=== PATIENT | female | born 1990 | race Caucasian/White ===

== ENCOUNTER 2022-08-17 13:08 | Inpatient (IN) | payer SELFPAY ==
--- OUTSIDE RECORDS SUMMARY | 2022-08-17 13:11 | XMS REPORT | Continuity of Care Document ---
:1990 Author Organization [facility] t Address [address] [place] [address] Dr. Sykes [address] [place] [id number] Care Team Providers Name Role Phone Unavailable Unavailable Unavailable Problems This patient has no known problems. Allergies, Adverse Reactions, Alerts This patient has no known allergies or adverse reactions. Medications This patient has no known medications. Procedures This patient has no known procedures. Encounters Start End Encounter Admission Attending Care Care Encounter Source Date/Time Date/Time Type Type Clinicians Facility Department ID 2022-04-21 2022-04-21 Outpatient [facility] SFA [id number] Juan M 15:24:53 15:24:53 [id number] [facility] Results This patient has no known results.
[2022-08-17] MEDS ORDERED: LORazepam 2 MG/ML VIAL ONE (13:45)
[2022-08-17] MEDS ORDERED: NA CHLORIDE 0.9% 1,000 ML ONE ×2 (13:45→16:11)
[2022-08-17 13:53] LABS: Absolute Lymphocytes (CBC) 0.2 K/uL (0.7-4.9); Hematocrit 37.5 % (36.0-45.0); Lymphocytes % 5.6 % (15.3-44.8); MCV 89.4 fL (80-100); MPV 8.2 fL (7.6-11.3); RBC Red Blood Cell Count 4.19 M/uL (3.86-4.86)
--- NOTE | 2022-08-17 13:57 | RAD REPORT ---
EXAM DESCRIPTION: CT - Head Brain Wo Cont - 08/17/2022 1:51 pm CLINICAL HISTORY: DIZZINESS Headache, drowsiness COMPARISON: No comparisons TECHNIQUE: All CT scans are performed using dose optimization technique as appropriate and may inclu de automated exposure control or mA/KV adjustment according to patient size. FINDINGS: No intracranial hemorrhage, hydrocephalus or extra-axial fluid collection.No areas of brai n edema or evidence of midline shift. The paranasal sinuses and mastoids are clear. The calvarium is intact. IMPRESSION: No acute intracranial abnormality.
[2022-08-17 14:03] LABS: Potassium 3.1 mmol/L (3.5-5.1)
[2022-08-17 14:12] LABS: Troponin High Sensitivity 6.5 pg/mL (<58.9)
--- NOTE | 2022-08-17 14:13 | RAD REPORT ---
EXAM DESCRIPTION: RAD - Chest Single View - 08/17/2022 2:05 pm CLINICAL HISTORY: SOB Chest pain. COMPARISON: No comparisons FINDINGS: Portable technique limits examination quality. The lungs are grossly clear. The heart is normal in size. No displaced fractures. IMPRESSION: No acute intrathoracic process suspected.
[2022-08-17 15:03] LABS: Urine Blood Negative (Negative); Urine Glucose Negative (Negative); Urine Protein 1+ (Negative); Urine pH 5.5 (5.0-7.0)
--- NOTE | 2022-08-17 15:18 | RAD REPORT ---
EXAM DESCRIPTION: CT - Chest For Pe Angio - 08/17/2022 3:06 pm CLINICAL HISTORY: Chest pain. SOB COMPARISON: No comparisons TECHNIQUE: CT angiogram of the pulmonary arteries was performed with MIP. All CT scans are performed using dose optimization technique as appropriate and may include automated exposure control or mA/KV adjustment according to patient size. FINDINGS: No evidence of pulmonary thromboembolism. No acute aortic finding demonstrated. The lungs are clear. No significant pericardial or pleural fluid. No concerning bony finding. IMPRESSION: No evidence of pulmonary thromboembolism. No acute lung findings.
--- NOTE | 2022-08-17 15:41 | ER ---
Nurse's Notes [facility] Name: Kim Alvares Age: 32 yrs Sex: Female : 1990 Arrival Date: 08/17/2022 Time: 13:10 Bed 20 Private MD: Diagnosis: Severe sepsis without septic shock;Tachycardia, unspecified;Dizziness;Shortness of breath;Chest pain, unspecified;Myalgia;UTI/ Urinary tract infection, site not specified Presentation: 08/17 13:38 Chief complaint: Patient states: she has been for approx one week with cough and ap3 congestion. patient reports passing out this morning, and since that episode, she has been shaking, feeling sweaty, and has vomited three times. Coronavirus screen: Client presents with at least one sign or symptom that may indicate coronavirus-19. Ebola Screen: No symptoms or risks identified at this time. Initial Sepsis Screen: Does the patient meet any 2 criteria? RR > 20 per min. HR > 90 bpm. Does the patient have a suspected source of infection? No. Patient's initial sepsis screen is negative. Risk Assessment: Do you want to hurt yourself or someone else? Patient reports no desire to harm self or others. Onset of symptoms was August 17, 2022. 13:38 Method Of Arrival: Ambulatory ap3 13:38 Acuity: MICHAEL 3 ap3 Triage Assessment: 13:42 General: Appears distressed, Behavior is anxious, Reports feeling ill for. Pain: ap3 Complains of pain in headache. Neuro: Level of Consciousness is awake, alert, obeys commands, Oriented to person, place, time, situation, Gait is steady, Speech is normal, Reports dizziness, headache a syncopal episode. Cardiovascular: Patient's skin is warm and dry. Respiratory: Airway is patent. GI: Reports nausea, vomiting. Historical: - Allergies: 13:42 No Known Allergies; ap3 - Home Meds: 13:42 None [Active]; ap3 - PMHx: 13:42 None; ap3 - Immunization history:: Client reports having NOT received the Covid vaccine. Flu vaccine is not up to date. - Social history:: Smoking status: Patient reports the use of cigarette tobacco products, smokes one-half pack cigarettes per day, Patient uses alcohol, occasionally. Screenin:43 Abuse screen: Denies threats or abuse. Nutritional screening: No deficits noted. ap3 Tuberculosis screening: No symptoms or risk factors identified. 19:45 [facility] ED Fall Risk Assessment (Adult) History of falling in the last 3 months, aa9 including since admission No falls in past 3 months (0 pts) Confusion or Disorientation No (0 pts) Intoxicated or Sedated No (0 pts) Impaired Gait No (0 pts) Mobility Assist Device Used No (0 pt) Altered Elimination No (0 pt) Score/Fall Risk Level 0 - 2 = Low Risk Oriented to surroundings, Maintained a safe environment. Assessment: 14:30 Reassessment: Patient and/or family updated on plan of care and expected duration. Pain kr3 level reassessed. Patient is alert, oriented x 3, equal unlabored respirations, skin warm/dry/pink. patient still shivering constantly. 15:29 Reassessment: Patient appears in no apparent distress at this time. Patient and/or kr3 family updated on plan of care and expected duration. Pain level reassessed. Patient is alert, oriented x 3, equal unlabored respirations, skin warm/dry/pink. shivering has improved. 16:30 Reassessment: Patient appears in no apparent distress at this time. Patient and/or kr3 family updated on plan of care and expected duration. Pain level reassessed. Patient is alert, oriented x 3, equal unlabored respirations, skin warm/dry/pink. 17:30 Reassessment: Patient appears in no apparent distress at this time. Patient and/or kr3 family updated on plan of care and expected duration. Pain level reassessed. Patient is alert, oriented x 3, equal unlabored respirations, skin warm/dry/pink. 18:16 Reassessment: Patient appears in no apparent distress at this time. Patient and/or kr3 family updated on plan of care and expected duration. Pain level reassessed. Patient is alert, oriented x 3, equal unlabored respirations, skin warm/dry/pink. 19:44 Reassessment: Patient appears in no apparent distress at this time. Patient and/or aa9 family updated on plan of care and expected duration. Pain level reassessed. Patient is alert, oriented x 3, equal unlabored respirations, skin warm/dry/pink. attempted to call report. 20:09 Reassessment: Patient appears in no apparent distress at this time. report provided to aa9 elizabeth walker. Vital Signs: 13:38 BP 97 / 59; Pulse 126; Resp 23; Pulse Ox 100% on R/A; Weight 55.79 kg; Height 5 ft. 6 ap3 in. (167.64 cm); 14:27 BP 97 / 63; Pulse 116; Resp 20; Pulse Ox 98% on R/A; kr3 15:29 BP 99 / 54; Pulse 111; kr3 15:32 Resp 17; Pulse Ox 100% on R/A; kr3 16:11 BP 94 / 61; Pulse 97; Resp 18; Pulse Ox 97% on R/A; kr3 17:15 BP 92 / 63; Pulse 100; Resp 17; Pulse Ox 96% on R/A; kr3 18:17 BP 90 / 61; Pulse 82; Resp 17; Pulse Ox 96% on R/A; kr3 13:38 Body Mass Index 19.85 (55.79 kg, 167.64 cm) ap3 ED Course: 13:10 Patient arrived in ED. as 13:18 Steven Bojorquez DO is Attending Physician. ms3 13:38 Inserted saline lock: 20 gauge in right antecubital area, using aseptic technique. zm Blood collected. 13:39 Marialuisa Barclay, JAZZ is Primary Nurse. kr3 13:42 Triage completed. ap3 13:42 Basic Metabolic Panel Sent. zm 13:42 CBC with Diff Sent. zm 13:42 D-Dimer Sent. zm 13:42 Troponin HS Sent. zm 13:43 Arm band placed on left wrist. ap3 13:43 Patient has correct armband on for positive identification. Bed in low position. Call ap3 light in reach. Side rails up X 1. Adult w/ patient. air sampling and monitoring on. Pulse ox on. NIBP on. Door closed. Noise minimized. 13:53 CT Head Brain wo Cont In Process Unspecified. EDMS 14:06 XRAY Chest (1 view) In Process Unspecified. EDMS 15:08 CT Chest For PE Angio In Process Unspecified. EDMS 15:39 Rajinder Allen DO is Referral Physician. ms3 16:00 Vu Samlls is Hospitalizing Provider. ms3 18:19 No provider procedures requiring assistance completed. kr3 19:45 Patient admitted, IV remains in place. aa9 Administered Medications: 13:46 Drug: Ativan (LORazepam) 0.5 mg Route: IVP; Site: right antecubital; kr3 14:01 Drug: NS 0.9% 1000 ml Route: IV; Rate: 1000 ml; Site: right antecubital; kr3 19:31 Follow up: Response: No adverse reaction; IV Status: Completed infusion; IV Intake: aa9 1000ml 16:45 Drug: Potassium Effervescent Tablet 50 mEq Route: PO; kr3 19:31 Follow up: Response: No adverse reaction aa9 16:50 Drug: Ketorolac 10 mg 10 mg Route: IVP; Site: right antecubital; kr3 16:58 Drug: Rocephin (cefTRIAXone) 1 grams Route: IV; Rate: calculated rate; Site: right kr3 antecubital; 19:31 Follow up: Response: No adverse reaction; IV Status: Completed infusion aa9 16:58 Drug: NS 0.9% 1000 ml Route: IV; Rate: 1000 ml; Site: right antecubital; kr3 19:30 Follow up: Response: No adverse reaction; IV Status: Completed infusion; IV Intake: aa9 1000ml Medication: 19:44 VIS not applicable for this client. aa9 Intake: 19:30 IV: 1000ml; Total: 1000ml. aa9 19:31 IV: 1000ml; Total: 2000ml. aa9 Outcome: 15:40 Discharge ordered by . ms3 16:01 Decision to Hospitalize by Provider. ms3 19:45 Admitted to Med/surg accompanied by tech, via stretcher, room 223, with chart. aa9 19:45 Condition: stable 19:45 Instructed on the need for admit. 20:14 Patient left the ED. aa9 Signatures: Dispatcher [employer] EDAlba Urrutia Amanda, RN RN ap3 Steven Bojorquez, DO ms3 Tori Hassan Aylin, RN RN aa9 Marialuisa Barclay RN RN kr3
--- NOTE | 2022-08-17 15:41 | EDPHYS ---
Physician Documentation [facility] Name: Kim Alvares Age: 32 yrs Sex: Female : 1990 Arrival Date: 08/17/2022 Time: 13:10 Bed 20 Private MD: ED Physician Steven Bojorquez HPI: 08/17 14:19 This 32 yrs old Female presents to ER via Ambulatory with complaints of Passed Out ms3 Prior To Arrival, Vomiting. 14:19 32-year-old female with no past medical history presents for dizziness and seeing white ms3 spots with syncope 1 hour prior to arrival. Patient states she has had dizziness similar to this before. Patient notes her head and right hand are tingling and her whole body hurts. Patient states she has had fever and body aches 1 week ago associated with a stuffy nose. Patient denies alleviating or inciting factors. Patient states she is having whole body pain at this time. Historical: - Allergies: 13:42 No Known Allergies; ap3 - Home Meds: 13:42 None [Active]; ap3 - PMHx: 13:42 None; ap3 - Immunization history:: Client reports having NOT received the Covid vaccine. Flu vaccine is not up to date. - Social history:: Smoking status: Patient reports the use of cigarette tobacco products, smokes one-half pack cigarettes per day, Patient uses alcohol, occasionally. ROS: 14:19 Constitutional: Negative for fever, and chills. Neck: Negative for injury, pain, and ms3 swelling, Cardiovascular: Negative for chest pain, and palpitations. 14:19 Constitutional: Positive for body aches. 14:19 Respiratory: Positive for shortness of breath. 14:19 Psych: Positive for anxiety. 14:19 All other systems are negative. Exam: 14:19 Abdomen/GI: Inspection: abdomen appears normal, Bowel sounds: normal, Palpation: ms3 abdomen is soft and non-tender. 14:19 Constitutional: This is a well developed, well nourished patient who is awake, alert, and in no acute distress. Head/Face: Normocephalic, atraumatic. Neck: Trachea midline, no cervical lymphadenopathy. Supple, full range of motion without nuchal rigidity, or vertebral point tenderness. No Meningismus. Chest/axilla: Normal chest wall appearance and motion. Nontender with no deformity. 14:19 Cardiovascular: Rate: tachycardic, Rhythm: regular, Pulses: no pulse deficits are appreciated, Heart sounds: normal, Edema: is not appreciated. 14:19 ECG was reviewed by the Attending Physician. Vital Signs: 13:38 BP 97 / 59; Pulse 126; Resp 23; Pulse Ox 100% on R/A; Weight 55.79 kg; Height 5 ft. 6 ap3 in. (167.64 cm); 14:27 BP 97 / 63; Pulse 116; Resp 20; Pulse Ox 98% on R/A; kr3 15:29 BP 99 / 54; Pulse 111; kr3 15:32 Resp 17; Pulse Ox 100% on R/A; kr3 16:11 BP 94 / 61; Pulse 97; Resp 18; Pulse Ox 97% on R/A; kr3 17:15 BP 92 / 63; Pulse 100; Resp 17; Pulse Ox 96% on R/A; kr3 18:17 BP 90 / 61; Pulse 82; Resp 17; Pulse Ox 96% on R/A; kr3 13:38 Body Mass Index 19.85 (55.79 kg, 167.64 cm) ap3 MDM: 13:26 Patient medically screened. ms3 15:50 Differential Diagnosis: PE vs PNA vs Arrhythmia vs Anxiety. Data reviewed: vital signs, ms3 nurses notes, lab test result(s), radiologic studies, CT scan, plain films. Consideration of Admission/Observation Escalation of care including admission/observation considered. 16:02 ED course: Patient meets severe sepsis criteria at this time. Source: UTI. SIRS: HR ms3 >90, WBC <4k. End organ dysfunction BP 86/54. LA and blood cultures ordered. Rocephin ordered. . 16:03 Management of patient was discussed with the following: Hospitalist: Dr Smalls and ms3 JIMMY Aviles. I considered the following discharge prescriptions or medication management in the emergency department Medications were administered in the Emergency Department. See MAR. Independent interpretation of the following test(s) in the Emergency Department EKG: See my EKG interpretation above X-Ray: My interpretation is CXR image negative. Counseling: I had a detailed discussion with the patient and/or guardian regarding: the historical points, exam findings, and any diagnostic results supporting the discharge/admit diagnosis, lab results, radiology results, the need for further work-up and treatment in the hospital. ED course: Patient with 1 episode of hypotension. Urine is positive for nitrite. Case discussed with Stefan and he accepts patient on behalf of Dr. Smalls. Discussed plan for admission with patient and she understands and agrees with plan. 08/17 13:27 Order name: Basic Metabolic Panel; Complete Time: 14:15 ms3 08/17 13:27 Order name: CBC with Diff; Complete Time: 15:58 ms3 08/17 13:27 Order name: D-Dimer; Complete Time: 14:15 ms3 08/17 13:27 Order name: Troponin HS; Complete Time: 14:15 ms3 08/17 15:02 Order name: Urine --Ancillary (enter results) bd 08/17 15:03 Order name: Urine Dipstick-Ancillary; Complete Time: 15:38 EDMS 08/17 15:47 Order name: CBC Smear Scan; Complete Time: 15:58 EDMS 08/17 15:56 Order name: Blood Culture Adult (2) ms3 08/17 15:56 Order name: Lactate w/ 2H reflex if indic. ms3 08/17 15:56 Order name: Protime (+inr) ms3 08/17 15:56 Order name: Ptt, Activated ms3 08/17 15:57 Order name: COVID-19/FLU A+B/RSV ms3 08/17 17:16 Order name: Glucose, Ancillary Testing EDMS 08/17 18:04 Order name: Lipid Profile EDMS 08/17 13:27 Order name: XRAY Chest (1 view); Complete Time: 14:15 ms3 08/17 13:34 Order name: CT Head Brain wo Cont; Complete Time: 14:15 ms3 08/17 14:16 Order name: CT Chest For PE Angio; Complete Time: 15:38 ms3 08/17 16:49 Order name: Echo with Doppler EDMS 08/17 16:49 Order name: ERT ORTHOSTATIC V/S EDMS 08/17 16:49 Order name: ERT ORTHOSTATIC V/S EDMS 08/17 16:49 Order name: ERT ORTHOSTATIC V/S EDMS 08/17 16:49 Order name: ERT ORTHOSTATIC V/S EDMS 08/17 18:19 Order name: Phosphorus EDMS 08/17 18:19 Order name: T4 Free EDMS 08/17 18:19 Order name: Magnesium EDMS 08/17 18:19 Order name: Thyroid Stimulating Hormone EDMS 08/17 18:34 Order name: Hemoglobin A1c EDMS 08/17 13:27 Order name: EKG; Complete Time: 13:27 ms3 08/17 13:27 Order name: Cardiac monitoring; Complete Time: 13:42 ms3 08/17 13:27 Order name: EKG - Nurse/Tech; Complete Time: 13:42 ms3 08/17 13:27 Order name: IV Saline Lock; Complete Time: 13:42 ms3 08/17 13:27 Order name: Labs collected and sent; Complete Time: 13:42 ms3 08/17 13:27 Order name: O2 Per Protocol; Complete Time: 13:42 ms3 08/17 13:27 Order name: O2 Sat Monitoring; Complete Time: 13:42 ms3 08/17 13:45 Order name: Urine Test (obtain specimen); Complete Time: 15:17 ap3 08/17 13:45 Order name: Urine Dipstick-Ancillary (obtain specimen); Complete Time: 15:17 ap3 08/17 15:46 Order name: Misc. Order: Ambulate Patient; Complete Time: 19:31 ms3 08/17 15:56 Order name: Accucheck; Complete Time: 17:05 ms3 08/17 15:56 Order name: IV Saline Lock - Large Bore; Complete Time: 16:03 ms3 08/17 15:56 Order name: Vital Signs; Complete Time: 16:10 ms3 08/17 16:49 Order name: Clear Liquid EDMS EC:19 Rate is 110 beats/min. Rhythm is regular. QRS [place] is Normal. VT interval is normal. ms3 QRS interval is normal. Clinical impression: Sinus tachycardia. Interpreted by me. Reviewed by me. Administered Medications: 13:46 Drug: Ativan (LORazepam) 0.5 mg Route: IVP; Site: right antecubital; kr3 14:01 Drug: NS 0.9% 1000 ml Route: IV; Rate: 1000 ml; Site: right antecubital; kr3 19:31 Follow up: Response: No adverse reaction; IV Status: Completed infusion; IV Intake: aa9 1000ml 16:45 Drug: Potassium Effervescent Tablet 50 mEq Route: PO; kr3 19:31 Follow up: Response: No adverse reaction aa9 16:50 Drug: Ketorolac 10 mg 10 mg Route: IVP; Site: right antecubital; kr3 16:58 Drug: Rocephin (cefTRIAXone) 1 grams Route: IV; Rate: calculated rate; Site: right kr3 antecubital; 19:31 Follow up: Response: No adverse reaction; IV Status: Completed infusion aa9 16:58 Drug: NS 0.9% 1000 ml Route: IV; Rate: 1000 ml; Site: right antecubital; kr3 19:30 Follow up: Response: No adverse reaction; IV Status: Completed infusion; IV Intake: aa9 1000ml Disposition Summary: 08/17/22 16:01 Hospitalization Ordered Hospitalization Status: Inpatient Admission ms3 Provider: Vu Smalls ms3 Location: Telemetry/[facility]Sur (Inpatient)(08/17/22 16:01) ms3 Condition: Stable(08/17/22 16:01) ms3 Problem: new ms3 Symptoms: are unchanged ms3 Bed/Room Type: Standard ms3 Room Assignment: 223(08/17/22 18:01) Diagnosis - Severe sepsis without septic shock ms3 - Tachycardia, unspecified(08/17/22 16:01) ms3 - Dizziness ms3 - Shortness of breath(08/17/22 16:01) ms3 - Chest pain, unspecified ms3 - Myalgia ms3 - UTI/ Urinary tract infection, site not specified(08/17/22 16:01) ms3 Forms: - Medication Reconciliation Form ms3 - SBAR form ms3 Critical care time excluding procedures: 16:03 Critical care time: Bedside Care: 35 minutes, Consultation: 5 minutes, Family ms3 Intervention: 5 minutes. Total time: 45 minutes Signatures: Dispatcher [employer] Francisca Montesinos RN RN dw Prokisch, Amanda RN RN [email or web address] Steven Bojorquez DO DO ms3 Marialuisa Barclay RN RN [email or web address] Irena De La Fuente RN aa9 Corrections: (The following items were deleted from the chart) 15:59 15:40 Home ms3 ms3 15:59 15:40 Stable ms3 ms3 15:59 15:40 Syncope ms3 ms3 15:59 15:40 Dizziness ms3 ms3 15: 15:40 Tachycardia, unspecified ms3 ms3 15:59 15:40 Shortness of breath ms3 ms3 15:59 15:47 UTI/ Urinary tract infection, site not specified ms3 ms3 18:01 16:01 ms3 dw
[2022-08-17 15:46] LABS: Platelet Estimate ADEQ; White Blood Cell Scan OK (OK)
[2022-08-17 15:47] LABS: Blood Morphology Comment NOT SEEN (NOT SEEN)
[2022-08-17] MEDS ORDERED: KETOROLAC 30 MG/ML INJ ONE (16:11)
[2022-08-17] MEDS ORDERED: POTASSIUM 25 MEQ EFFERV TAB ONE (16:11)
[2022-08-17] MEDS ORDERED: CEFTRIAXONE 1000 MG/VIAL ONE (16:11)
[2022-08-17] MEDS ORDERED: SODIUM CHLORIDE 0.9% 10ML INJ IV PRN (16:48)
--- NOTE | 2022-08-17 16:54 | P.HP ---
Certification for Inpatient Patient admitted to: Inpatient With expected LOS: >2 Midnights Patient will require the following post-hospital care: None Practitioner: I am a practitioner with admitting privileges, knowledge of patient current condition, hospital course, and medical plan of care. Services: Services provided to patient in accordance with Admission requirements found in Title 42 Section 412.3 of the Code of Federal Regulations Patient History Date of Service: 08/17/22 Reason for admission: Syncope History of Present Illness: Patient is a 32-year-old female with a past medical history significant for nicotine dependence who presents with complaint of syncope onset today. Patient reported that she has been having flulike symptoms--sore throat, runny nose, fever and headache for the past 1 week. Patient also reported chest pain onset 3 days ago located in the substernal chest area. Patient rated pain as 8/10 in severity and described pain as stabbing in quality. Patient reported that she experienced episode of nausea and vomiting today. Patient later started experiencing dizziness and eventually passed out. Patient denies hitting her head. Patient reported associated signs and symptoms of poor appetite, diaphoresis, malaise and generalized body pains. Patient denies any other signs and symptoms. Symptoms are aggravated or relieved by nothing. Patient decided to present to the hospital with due to worsening symptoms. Home medications list reviewed: No - Past Medical/Surgical History Diabetic: No -: Nicotine dependence Past Surgical History: Reviewed- Non-Contributory - Family History Family History: Reviewed- Non-Contributory - Social History Smoking Status: Current every day smoker Counseled patient to stop smoking for: less than 10 minutes Smoking therapy provided: Yes Patient receptive to therapy: Yes Alcohol use: Yes CD- Drugs: No Caffeine use: Yes Place of Residence: Home Review of Systems General: Fever, Sweats, Malaise, Other (Poor appetite, generalized body pains) Eyes: Unremarkable ENT: Throat Pain, Other (Rhinorrhea) Respiratory: Unremarkable Cardiovascular: Chest Pain Gastrointestinal: Nausea, Vomiting Genitourinary: Unremarkable Musculoskeletal: Other (Generalized body pains) Integumentary: Unremarkable Neurological: Weakness, Other (Headache, dizziness, syncope) Lymphatics: Unremarkable Physical Examination - Physical Exam General: Alert, In no apparent distress, Oriented x3, Cooperative HEENT: Atraumatic, PERRLA, Mucous membr. moist/pink, EOMI, Sclerae nonicteric Neck: Supple, 2+ carotid pulse no bruit, No LAD, Without JVD or thyroid abnormality Respiratory: Clear to auscultation bilaterally, Normal air movement Cardiovascular: No edema, Regular rate/rhythm, Normal S1 S2 Capillary refill: <2 Seconds Gastrointestinal: Normal bowel sounds, Non-distended, No tenderness Musculoskeletal: No clubbing, No swelling, No tenderness Integumentary: No rashes, No significant lesion, No tenderness/swelling Neurological: Normal gait, Normal speech, Normal strength at 5/5 x4 extr, Normal tone, Normal affect Lymphatics: No axilla or inguinal lymphadenopathy - Studies Laboratory Data (last 24 hrs) 08/17/22 13:38: WBC 3.50 L, Hgb 13.0, Hct 37.5, Plt Count 286 08/17/22 13:38: Sodium 136, Potassium 3.1 L, BUN 10, Creatinine 1.19 H, Glucose 127 H Assessment and Plan - Plan --Syncope. Likely secondary to hypotension. Echocardiogram pending to assess LV\valvular function and wall motion. Carotid Doppler to assess for any carotid artery stenosis. We will get orthostatic vital signs. Continue IV hydration. Fall precautions. --Sepsis POA. Patient given IV bolus hydration in the ER. Continue antibiotics and IV hydration. --COVID-19 infection. Patient's O2 sat within normal limits on room air. No intrathoracic abnormality noted on imaging. Continue airborne and contact precautions. --Nausea and vomiting. Antiemetics on board. Continue IV hydration. --Nicotine dependence. Patient counseled on tobacco cessation. Patient refuses nicotine patch. --Chest pain. To rule out ACS. Will trend serial troponins-negative so far. Cardiology consulted. Echocardiogram pending. Telemetry to monitor for any significant arrhythmia. --Headache. Tylenol as needed. --Elevated D-dimer. Likely secondary to COVID-19 infection. CTA PE protocol negative for PE. Continue supportive care. --UTI POA. Continue antibiotics. Urine cultures pending. --DVT prophylaxis with Lovenox subQ. Discharge Plan: Home Plan to discharge in: Greater than 2 days - Advance Directives Does patient have a Living Will: No Does patient have a Durable POA for Healthcare: No - Code Status/Comfort Care Code Status Assessed: Yes Physician Review: Patient Assessed, Agree with Above Assessment and Plan Critical Care: No
[2022-08-17 17:11] LABS: Protime INR 1.09
[2022-08-17 17:41] LABS: SARS-COV-2 RT PCR POSITIVE (NEGATIVE)
[2022-08-17 18:17] LABS: Magnesium 1.4 mg/dL (1.6-2.4); Thyroid Stimulating Hormone 0.566 uIU/mL (0.358-3.740)
[2022-08-17 18:18] LABS: Phosphorus 0.8 mg/dL (2.5-4.9)
[2022-08-17] MEDS ORDERED: MAGNESIUM SULFATE 1 gm IVPB 1 GM/100 ML BAG IV ONE (19:27)
[2022-08-17] MEDS ORDERED: POTASSIUM PHOS 10 MM in NA CHLORIDE 0.9% 250 ML IV ONE (19:28)
[2022-08-17] MEDS: ASPIRIN 81 MG CHEWABLE TABLET PO SCH (20:49)
[2022-08-17] MEDS: ENOXAPARIN 40 MG/0.4 ML SQ SCH (20:50)
[2022-08-17] MEDS: PANTOPRAZOLE 40 MG INJ IVP SCH (20:50)
[2022-08-17] MEDS: NA CHLORIDE 0.9% 1,000 ML IV SCH (20:50)
[2022-08-17] MEDS ORDERED: POTASSIUM PHOS IN 0.9 % NACL 15 MMOL/250 ML BAG IV ONE ×2 (21:38→22:29)
[2022-08-17] MEDS: NICOTINE 21 MG/PAT TD SCH (22:36)
[2022-08-18 02:11] LABS: Absolute Lymphocytes (CBC) 0.7 K/uL (0.7-4.9); Hematocrit 34.3 % (36.0-45.0); Lymphocytes % 7.9 % (15.3-44.8); MCV 90.5 fL (80-100); MPV 8.9 fL (7.6-11.3); RBC Red Blood Cell Count 3.79 M/uL (3.86-4.86)
[2022-08-18 02:22] LABS: Magnesium 2.2 mg/dL (1.6-2.4); Potassium 4.4 mmol/L (3.5-5.1)
[2022-08-18] MEDS: ONDANSETRON 4 MG/2 ML VIAL IV PRN ×2 (02:46→22:25)
[2022-08-18] MEDS: ACETAMINOPHEN 325 MG TABLET PO PRN ×3 (02:52→22:25)
[2022-08-18] MEDS: TRAMADOL HCL 50 MG TAB PO PRN ×2 (02:52→20:15)
--- NOTE | 2022-08-18 07:56 | EKG ---
Test Date: 2022-08-17 Test Time: 13:33:02 Juvenile Corrections Officer: ALP MEASUREMENT RESULTS: Intervals: Rate: 114 ID: [id number] QRSD: 80 QT: 330 QTc: 454 [place]: P: 7 ID: [id number] QRS: 83 T: 73 INTERPRETIVE STATEMENTS: Sinus tachycardia RSR' or QR pattern in V1 suggests right ventricular conduction delay Nonspecific ST and T wave abnormality Abnormal ECG No previous ECG available for comparison Electronically Signed On 08-18-22 07:54:27 FARMWORKER [employer]IN by Sukhdev Casanova
[2022-08-18] MEDS ORDERED: INFLUENZA VACCINE (for 6+ mo) 0.5 ML DOSE IMVAC ONE (08:00)
--- NOTE | 2022-08-18 08:18 | RAD REPORT ---
EXAM DESCRIPTION: - CP - 08/18/2022 1:03 am CLINICAL HISTORY: Syncope COMPARISON: No comparisons TECHNIQUE: Real-time sonographic grayscale, color duplex, and spectral wave Doppler evaluation of [facility] carotid systems was performed. FINDINGS: Normal high resistance waveforms are noted in both external carotid arteries. The common c arotid arteries and internal carotid arteries show normal low resistance waveforms. No significant plaque formation is seen. Peak systolic velocity less than 125 cm/ sec bilaterally. IC A/CCA peak systolic ratios less than 2.0 bilaterally. Antegrade flow seen in both vertebral arteries. IMPRESSION: No significant atherosclerotic changes noted. No evidence of a hemodynamically significant stenosis.
[2022-08-18] MEDS: CEFTRIAXONE 1,000 MG in NA CHLORIDE 0.9% 50 ML IVPB SCH (09:50)
[2022-08-18] MEDS: PANTOPRAZOLE 40 MG INJ IVP SCH (09:51)
[2022-08-18] MEDS: ASPIRIN 81 MG CHEWABLE TABLET PO SCH (09:51)
[2022-08-18] MEDS: NICOTINE 21 MG/PAT TD SCH (09:51)
[2022-08-18] MEDS: ENOXAPARIN 40 MG/0.4 ML SQ SCH (09:52)
--- NOTE | 2022-08-18 12:11 | P.PN ---
Subjective Date of Service: 08/18/22 Chief Complaint: Syncope Patient had fever last night. Blood pressure has been borderline low. She denies any other complaints and wishes to go home. 2/4 blood culture bottles growing gram-negative rods. Physical Examination - Vital Signs Temperature: 98.3 F Blood Pressure: 95/55 Pulse: 84 Respirations: 18 Pulse Ox (%): 99 - Studies Laboratory Data (last 24 hrs) 08/17/22 16:30: PT 12.0, INR 1.09, APTT 27.2 08/17/22 13:38: WBC 3.50 L, Hgb 13.0, Hct 37.5, Plt Count 286 08/17/22 13:38: Sodium 136, Potassium 3.1 L, BUN 10, Creatinine 1.19 H, Glucose 127 H Assessment And Plan - Current Problems (Diagnosis) (1) Gram negative sepsis Current Visit: Yes Status: Acute (2) Syncope Current Visit: Yes Status: Acute (3) COVID-19 virus infection Current Visit: Yes Status: Acute - Plan Physical Exam General: Alert, In no apparent distress, Oriented x3. Neck: Supple, no elevated JVD. Respiratory: Clear to auscultation bilaterally, Normal air movement Cardiovascular: No edema, Regular rate/rhythm, Normal S1 S2 Capillary refill: <2 Seconds Gastrointestinal: Normal bowel sounds, Non-distended, No tenderness Musculoskeletal: No clubbing, No swelling, No tenderness Integumentary: No rashes, No significant lesion, No tenderness/swelling Neurological: Normal gait, Normal speech, Normal strength at 5/5 x4 extr, Normal tone, Normal affect Plan: Continue IV Rocephin. Follow blood cultures. Urine culture not done. Obtain urine culture. Supportive measures with IV hydration, antipyretics. Diet as tolerated. Syncope likely secondary to orthostasis. Echocardiogram done and the result is pending. Hypomagnesemia and hypophosphatemia corrected. No COVID-pneumonia.
[2022-08-18] MEDS: NA CHLORIDE 0.9% 1,000 ML IV SCH ×2 (15:41→22:25)
[2022-08-19] MEDS: ACETAMINOPHEN 325 MG TABLET PO PRN ×3 (04:54→20:35)
[2022-08-19] MEDS: TRAMADOL HCL 50 MG TAB PO PRN ×2 (04:54→16:47)
--- NOTE | 2022-08-19 06:28 | ECHO ---
HEIGHT: 5 ft 6 in WEIGHT: 122 lb 15.934 oz DATE OF STUDY: 08/18/[address]: Krish Jacobo 2-DIMENSIONAL: YES M.MODE: YES DOPPLER: YES COLOR FLOW: YES TDS: PORTABLE: YES DEFINITY: BUBBLE STUDY: DIAGNOSIS: CHEST PAIN CARDIAC HISTORY: CATHERIZATION: SURGERY: PROSTHETIC VALVE: PACEMAKER: MEASUREMENTS (cm) DIASTOLIC (NORMALS) SYSTOLIC (NORMALS) IVSd 0.8 (0.6-1.2) LA Diam 2.3 (1.9-4.0) LVEF 55% LVIDd 4.5 (3.5-5.7) LVIDs 3.2 (2.0-3.5) %FS 28% LVPWd 0.8 (0.6-1.2) Ao Diam 2.7 (2.0-3.7) 2 DIMENSIONAL ASSESSMENT: RIGHT ATRIUM: NORMAL LEFT ATRIUM: NORMAL RIGHT VENTRICLE: NORMAL LEFT VENTRICLE: NORMAL TRICUSPID VALVE: MILD TRICUSPID REGURGITATION MITRAL VALVE: NORMAL PULMONIC VALVE: MILD PULMONIC INSUFFICIENCY AORTIC VALVE: NORMAL PERICARDIAL EFFUSION: NONE AORTIC ROOT: NORMAL LEFT VENTRICULAR WALL MOTION: NORMAL DOPPLER/COLOR FLOW: SEE BELOW COMMENTS: 1. NORMAL LEFT VENTRICULAR EJECTION FRACTION 55-60% 2. MILD TRICUSPID REGURGITATION, PULMONIC INSUFFICIENCY 3. NORMAL DIASTOLIC FUNCTION 4. DILATED INFERIOR VENA CAVA TECHNOLOGIST: MATILDA HINDS
[2022-08-19] MEDS: ASPIRIN 81 MG CHEWABLE TABLET PO SCH (09:24)
[2022-08-19] MEDS: CEFTRIAXONE 1,000 MG in NA CHLORIDE 0.9% 50 ML IVPB SCH (09:24)
[2022-08-19] MEDS: PANTOPRAZOLE 40 MG INJ IVP SCH (09:25)
[2022-08-19] MEDS: NICOTINE 21 MG/PAT TD SCH (09:25)
[2022-08-19] MEDS: ENOXAPARIN 40 MG/0.4 ML SQ SCH (09:25)
[2022-08-19] MEDS: NA CHLORIDE 0.9% 1,000 ML IV SCH ×2 (09:27→20:25)
--- NOTE | 2022-08-19 13:14 | CON ---
History Of Present Illness: This is a 32-year-old female I was consulted for bacteremia. Patient melara s significant history of tobacco dependence, coming in with fevers and flu-like symptoms with runny n ose and headaches of 1 week. Patient also complains of chest discomfort, worsening with the cough. Patient denies any other problems like nausea, vomiting, abdominal pain, back pain. Complains of aristides e leg discomfort. Past Medical History: None. Social History: Tobacco positive. Alcohol negative. Family History: Noncontributory. Medications: Rocephin. See MAR for other medications. Allergies: NO KNOWN DRUG ALLERGIES. Review of Systems: A 10-point review was performed. Physical Examination: General: This is a 32-year-old female, lying in bed, not in any acute cardiopulmonary distress. Vital Signs: Temperature 97, pulse 69, respirations 16, blood pressure 98/60. HEENT: Unremarkable. Neck: Supple. Lungs: Clear to auscultation. Heart: S1, S2. Regular. Abdomen: Soft. Bowel sounds present. Extremity: No edema. Laboratory Data: Shows WBC 8.3, hemoglobin 11.7, platelets are 226; leukopenia 3.5 has resolved to n ormal. BUN 9, creatinine 0.7. Urine nitrites are positive. COVID test is positive. CT chest done shows no evidence of thromboembolism. Micro data showing gram-negative katie in blood cultures. Assessment And Plan: Gram-negative katie bacteremia, COVID infection, currently being treated with Dayo ephin in a 32-year-old female with the longstanding history of tobacco use. Leukopenia has improved, most likely secondary to viral syndrome. Continue current treatment total of 10 days. We will foll ow patient as needed. Thank you, Dr. Smalls, for consult. NF/MODL Voice ID: [id number] Report ID: [id number]
--- NOTE | 2022-08-19 13:53 | P.PN ---
Subjective Date of Service: 08/19/22 Chief Complaint: Syncope Patient has no new complaint. She had fever yesterday. Physical Examination - Vital Signs Temperature: 97.0 F Blood Pressure: 95/64 Pulse: 69 Respirations: 16 Pulse Ox (%): 100 Assessment And Plan - Current Problems (Diagnosis) (1) Gram negative sepsis Current Visit: Yes Status: Acute (2) Syncope Current Visit: Yes Status: Acute (3) COVID-19 virus infection Current Visit: Yes Status: Acute - Plan Physical Exam General: Alert, NAD Respiratory: Clear to auscultation bilaterally, Normal air movement Cardiovascular: No edema, Regular rate/rhythm, Normal S1 S2 Gastrointestinal: Normal bowel sounds, Non-distended, No tenderness Musculoskeletal: No clubbing, No swelling, No tenderness Integumentary: No rashes, No significant lesion, No tenderness/swelling Neurological: No focal motor deficit. Plan: Continue IV Rocephin. Blood culture organism identification and antibiotic sensitivity are pending. Supportive measures with IV hydration, antipyretics. Diet as tolerated. Syncope likely secondary to orthostasis. Echocardiogram shows normal EF and unremarkable. Infectious disease input appreciated. Dr. Rodriguez recommends outpatient oral antibiotics pending organism ID and sensitivity No COVID-pneumonia.
[2022-08-19] MEDS: ONDANSETRON 4 MG/2 ML VIAL IV PRN (16:02)
[2022-08-19 16:03] LABS: Specific Gravity 1.008 (1.005-1.030); Urine Bilirubin NEGATIVE (Negative); Urine Blood Negative (Negative); Urine Clarity Clear (Clear); Urine Color Yellow (Yellow); Urine Glucose NEGATIVE (Negative); Urine Protein NEGATIVE (Negative); Urine Urobilinogen 2+ (Normal)
[2022-08-19 16:25] VITALS: BMI 19.7
[2022-08-19] MEDS ORDERED: MORPHINE 2 MG/ML SYR IV PRN (18:09)
[2022-08-20] MEDS: TRAMADOL HCL 50 MG TAB PO PRN (06:09)
[2022-08-20] MEDS: NA CHLORIDE 0.9% 1,000 ML IV SCH ×2 (09:15→23:38)
[2022-08-20] MEDS: NICOTINE 21 MG/PAT TD SCH (09:16)
[2022-08-20] MEDS: ASPIRIN 81 MG CHEWABLE TABLET PO SCH (09:16)
[2022-08-20] MEDS: PANTOPRAZOLE 40 MG INJ IVP SCH (09:16)
[2022-08-20] MEDS: ENOXAPARIN 40 MG/0.4 ML SQ SCH (09:16)
[2022-08-20] MEDS: CEFTRIAXONE 1,000 MG in NA CHLORIDE 0.9% 50 ML IVPB SCH (09:17)
[2022-08-20] MEDS: ACETAMINOPHEN 325 MG TABLET PO PRN (13:38)
--- NOTE | 2022-08-20 14:24 | P.PN ---
Subjective Date of Service: 08/20/22 Chief Complaint: Syncope Patient states she feels much better She is complaining of headache. 36 hours of no fever. She is tolerating clear liquid diet. Physical Examination - Vital Signs Temperature: 98.3 F Blood Pressure: 104/72 Pulse: 78 Respirations: 16 Pulse Ox (%): 99 Assessment And Plan - Current Problems (Diagnosis) (1) Gram negative sepsis Current Visit: Yes Status: Acute (2) Syncope Current Visit: Yes Status: Acute (3) COVID-19 virus infection Current Visit: Yes Status: Acute - Plan Physical Exam General: Alert, NAD Respiratory: Clear to auscultation bilaterally, Normal air movement Cardiovascular: No edema, Regular rate/rhythm, Normal S1 S2 Gastrointestinal: Normal bowel sounds, Non-distended, No tenderness Musculoskeletal: No clubbing, No swelling, No tenderness Integumentary: No rashes, No significant lesion, No tenderness/swelling Neurological: No focal motor deficit. Plan: Continue IV Rocephin. Blood culture organism identification and antibiotic sensitivity still pending. Supportive measures with IV hydration, antipyretics. Advance diet as tolerated. Syncope likely secondary to orthostasis. Blood pressure readings improved today. Echocardiogram shows normal EF and unremarkable. Infectious disease input appreciated. Dr. Rodriguez recommends outpatient oral antibiotics pending organism ID and sensitivity No COVID-pneumonia.
[2022-08-21] MEDS: NA CHLORIDE 0.9% 1,000 ML IV SCH (01:00)
[2022-08-21 03:45] LABS: Absolute Lymphocytes (CBC) 1.6 K/uL (0.7-4.9); Hematocrit 31.1 % (36.0-45.0); Lymphocytes % 29.4 % (15.3-44.8); MCV 89.2 fL (80-100); RBC Red Blood Cell Count 3.49 M/uL (3.86-4.86)
[2022-08-21 03:52] LABS: Potassium 3.7 mmol/L (3.5-5.1)
[2022-08-21 04:09] VITALS: O2SAT 97
[2022-08-21] MEDS: PANTOPRAZOLE 40 MG INJ IVP SCH (08:26)
[2022-08-21] MEDS: ENOXAPARIN 40 MG/0.4 ML SQ SCH (08:26)
[2022-08-21] MEDS: NICOTINE 21 MG/PAT TD SCH (08:27)
[2022-08-21] MEDS: ASPIRIN 81 MG CHEWABLE TABLET PO SCH (08:32)
--- NOTE | 2022-08-21 08:39 | P.DS ---
Admission Date: 08/17/22 Discharge Date: 08/21/22 Disposition: ROUTINE DISCHARGE Discharge Condition: FAIR Reason for Admission: Syncope - Problems (1) Gram negative sepsis Status: Acute (2) Syncope Status: Acute (3) COVID-19 virus infection Status: Acute Brief History of Present Illness: Patient is a 32-year-old female with a past medical history significant for nicotine dependence who presented with complaint of syncope. Patient reported that she has been having flulike symptoms-sore throat, runny nose, fever and headache for 1 week. Patient also reported chest pain onset 3 days ago located in the substernal chest area. Patient rated pain as 8/10 in severity and described pain as stabbing in quality. Patient reported that she experienced episode of nausea and vomiting. Patient later started experiencing dizziness and eventually passed out. She denies hitting her head. She also reported poor appetite, diaphoresis, malaise and generalized body pains. She tested positive for COVID-19. UA suggested the presence of UTI. Patient was admitted for further management. Hospital Course: Patient admitted to the medical floor and started on IV hydration for borderline low blood pressure. Her blood culture grew E. coli. Patient was treated with IV Rocephin and received 4 days of treatment. Patient's symptoms resolved. Her blood pressure improved. She was seen and evaluated by infectious disease who recommended further outpatient treatment with oral antibiotics. E. coli is sensitive to fluoroquinolones. Patient is discharged with oral ciprofloxacin to complete 2 weeks of treatment for E. coli bacteremia. Vital Signs/Physical Exam: Temp Pulse Resp BP Pulse Ox 97.5 F 66 17 103/54 L 97 08/21/22 04:00 08/21/22 04:00 08/21/22 04:00 08/21/22 04:00 08/21/22 04:00 General: Alert, In no apparent distress, Oriented x3 HEENT: Mucous membr. moist/pink Neck: JVD not distended Respiratory: Clear to auscultation bilaterally, Normal air movement Cardiovascular: No edema, Regular rate/rhythm, Normal S1 S2 Capillary refill: >2 Seconds Gastrointestinal: Soft and benign, Non-distended Musculoskeletal: No swelling Integumentary: No rashes, No cyanosis Neurological: Normal speech, Normal strength at 5/5 x4 extr Laboratory Data at Discharge: WBC 5.30 K/uL (4.3-10.9) 02/12/23 02:57 Hgb 10.8 g/dL (12.0-15.0) L 08/21/22 02:57 Hct 31.1 % (36.0-45.0) L 08/21/22 02:57 Plt Count 311 K/uL (152-406) 08/21/22 02:57 PT 12.0 SECONDS (9.5-12.5) 08/17/22 16:30 INR 1.09 08/17/22 16:30 APTT 27.2 SECONDS (24.3-36.9) 08/17/22 16:30 Sodium 137 mmol/L (136-145) 08/21/22 02:57 Potassium 3.7 mmol/L (3.5-5.1) 08/21/22 02:57 BUN 4 mg/dL (7-18) L 08/21/22 02:57 Creatinine 0.55 mg/dL (0.55-1.02) 08/21/22 02:57 Glucose 102 mg/dL (74-106) 08/21/22 02:57 Phosphorus 3.0 mg/dL (2.5-4.9) 08/18/22 01:54 Magnesium 2.2 mg/dL (1.6-2.4) 08/18/22 01:54 Triglycerides 62 mg/dL (<150) 08/17/22 17:35 Cholesterol 146 mg/dL (<200) 08/17/22 17:35 HDL Cholesterol 42 mg/dL (40-60) 08/17/22 17:35 Cholesterol/HDL Ratio 3.48 08/17/22 17:35 Home Medications: Ciprofloxacin HCl [Cipro] 500 mg PO BID #24 tab 08/21/22 Lactobacillus Acidophilus [Acidophilus Lactobacilli] 1 each PO BID #30 cap 08/21/22 New Medications: Lactobacillus Acidophilus [Acidophilus Lactobacilli] 1 each PO BID #30 cap Ciprofloxacin HCl [Cipro] 500 mg PO BID #24 tab Diet: Regular Activity: Ad danielle Followup: NONE,NONE [Primary Care Provider] - 1-2 Weeks Time spent managing pt's care (in minutes): 35
[2022-08-21 08:46] VITALS: BP 102/59; TEMP 98.3
[2022-08-21] MEDS ORDERED: POTASSIUM CL SA 10 MEQ TAB PO ONE (09:00)
--- NOTE | 2022-08-23 17:36 | EKG ---
Test Date: 2022-08-17 Test Time: 13:33:45 Conference Service Coordinator: ALP MEASUREMENT RESULTS: Intervals: Rate: 110 [place]: 126 QRSD: 88 QT: 298 QTc: 403 [place]: P: 53 IL: 126 QRS: 78 T: 8 INTERPRETIVE STATEMENTS: Sinus tachycardia RSR' or QR pattern in V1 suggests right ventricular conduction delay T wave abnormality, consider inferior ischemia T wave abnormality, consider anterior ischemia Abnormal ECG Compared to ECG 08/17/2022 13:33:02 T-wave abnormality now present Possible ischemia now present ST (T wave) deviation no longer present Electronically Signed On 08-23-22 17:21:43 FIRE RANGE TECHNICIAN by Sukhdev Casanova
== END 2022-08-21 10:34 | disposition home or self-care (01) | DRG 871 ==
LOC: ER 13:08 → ERHOLD 16:41 → 2ND 19:31
PROVIDERS: ADMIT Internal Medicine; ATTEND Internal Medicine
DX: A41.51 Sepsis due to Escherichia coli [E. coli] (principal); U07.1 COVID-19; N39.0 Urinary tract infection, site not specified; R65.20 Severe sepsis without septic shock; E83.42 Hypomagnesemia; E83.39 Other disorders of phosphorus metabolism; D72.819 Decreased white blood cell count, unspecified; F17.210 Nicotine dependence, cigarettes, uncomplicated; Z28.310 Unvaccinated for COVID-19; Z79.899 Other long term (current) drug therapy
CPT/HCPCS: 0241U; 36415; 70450; 71045; 71275; 80048; 80061; 81003; 81025; 82947; 83036; 83605; 83735; 84100; 84439; 84443; 84484; 85025; 85379; 85610; 85730; 87040; 87077; 87186; 87205; 93005; 93306; 93880; 96361; 96365; 96366; 96375; 99285; C9113; J1650; J2405; J3475; J7030; J7050; Q9967